=== PATIENT | male | born 2000 | race Caucasian/White ===

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

== ENCOUNTER → 2019-01-06 | Outpatient (CLI) | payer BC ==
--- NOTE | 2019-01-06 14:34 | XR ---
EXAMINATION TYPE: XR ankle complete LT DATE OF EXAM: 01/06/2019 COMPARISON: NONE HISTORY: Pain FINDINGS: Three views of the ankle demonstrate the ankle mortise to be intact and symmetric. The joint spaces are preserved. There is soft tissue swelling. There is a small bony density along the lateral regla in of the calcaneus. IMPRESSION: 1. Tiny bony density along the lateral margin the calcaneus. Tiny avulsion fracture and the different ial diagnosis correlate with point tenderness.
== END | disposition home or self-care (01) ==
LOC: RADXRYALE 14:08
PROVIDERS: ATTEND Physician Assistant Medical
DX: M25.572 Pain in left ankle and joints of left foot (principal)

== ENCOUNTER → 2020-02-13 | Outpatient (CLI) | payer BC | END | disposition home or self-care (01) | CPT/HCPCS: 72110 ==